=== PATIENT | male | born 1965 | race Caucasian/White ===

== ENCOUNTER 2016-05-27 07:19 | Day surgery (SDC) | payer BC ==
[2016-05-26 10:52] LABS: BUN (BLOOD UREA NITROGEN) 11 MG/DL (6-23); CALCIUM, SERUM 8.6 MG/DL (8.5-10.4); CHLORIDE, SERUM 108 MMOL/L (96-112); CO2 (CARBON DIOXIDE) 27 MMOL/L (24-34); CREATININE 0.82 MG/DL (0.70-1.30); GFR AFRICAN AMERICAN 119 ML/MIN (>=60); GFR NON AFRICAN AMERICAN 102 ML/MIN (>=60); POTASSIUM, SERUM 3.8 MMOL/L (3.5-5.3); SODIUM, SERUM 143 MMOL/L (135-148)
[2016-05-26 10:53] LABS: GLUCOSE, SERUM 157 MG/DL (60-99)
--- NOTE | ~2016-05-27 | OP ---
Record Of Operation [facility] [address] [place]. [address] NAME: GISSELL ANGELES : 63 [place] [facility] [place] [id number] AGE: 50 ADM/REG DATE : 05/27/16 MR#: [id number] REPORT SERV DATE: 05/27/16 DICTATED BY: FIDELINA REA DATE: 05/27/16 REPORT STATUS : Draft TRANSCRIBED BY: MODL DATE: 05/27/16 DATE OF PROCEDURE: 05/27/2016 PREOPERATIVE DIAGNOSES: 1. Left maxillary sinus cyst. 2. Chronic nasal obstruction. 3. Bilateral inferior turbinate hypertrophy. POSTOPERATIVE DIAGNOSES: 1. Left maxillary sinus cyst. 2. Chronic nasal obstruction. 3. Bilateral inferior turbinate hypertrophy. PROCEDURES: 1. Left endoscopic middle meatal antrostomy with cyst removal. 2. Bilateral inferior turbinoplasty. SURGEON: Fidelina Rea M.D. ANESTHESIA: General. COMPLICATIONS: None. COUNTS: All counts were correct following the procedure. ESTIMATED BLOOD LOSS: Minimal. PREOPERATIVE INFORMED CONSENT: We discussed the risks and benefits of the surgery including, but not limited to bleeding, infection, and possible ocular injury including blindness, possible recurrence of the cyst. He understands the risks and benefits of the surgery, and consent is on the chart. DESCRIPTION OF PROCEDURE: The patient was brought to the operating suite, placed on the operating room table in supine position. General endotracheal anesthesia was initiated without incident. The patient's head and neck were cleaned and prepped in the usual sterile fashion. Following this, both inferior turbinates and the left middle turbinate and uncinate processes were injected 1% lidocaine with 1:100,000 epinephrine for hemostasis. Approximately 10 mL was used. Following this, the left middle meatus and inferior aspect of the uncinate process were taken down using pediatric backbiting forceps. The remainder was removed using Xomed sinus shaver exposing a large cyst filling the maxillary sinus. The pictures were taken. Then, the cyst was filled with crystal-laden serous fluid, it was suctioned until clear. The cyst itself was removed using a Giraffe forcep and as well as straight Blakesley forceps. Specimens was sent in formalin for permanent pathology. Then the maxillary sinus was filled with a Propel mometasone stent, and attention was taken to the turbinates. Record Of Operation [facility] [address] [place]. [address] NAME: GISSELL ANGELES : 63 [place] [facility] [place] [id number] AGE: 50 ADM/REG DATE : 05/27/16 MR#: [id number] REPORT SERV DATE: 05/27/16 DICTATED BY: FIDELINA REA DATE: 05/27/16 REPORT STATUS : Draft TRANSCRIBED BY: MODL DATE: 05/27/16 The patient was brought to the operating suite and placed on the operating table in the supine position. General endotracheal anesthesia was initiated without incident. The patient's head and neck were cleaned, prepped and draped in the usual sterile fashion. Following this, both sides of the septum and inferior turbinates were injected with 1% Lidocaine with 1:100,000 epinephrine for hemostasis. Approximately 12.0 mL was used. Following this, a #15 blade scalpel was used to performed a left hemitransfixion incision down to the underlying septal cartilage. A mucoperichondrial flap was raised along the left side of the nasal septum using [place] and Gordon elevators. The bony cartilaginous junction was using the Julián elevator and then the mucoperiosteum was raised off both sides of the bony nasal septum. A thin strip of the cartilaginous septum along the maxillary crest was removed using a #15 blade scalpel and a Julián elevator, allowing the cartilaginous septum to swing back in the midline. The maxillary crest was exposed using the Clements elevator and removed using the 6.0 mm. straight osteotome. The deviated bony nasal septum was taken down using open Shirley-Damon forceps, as well as Gregory forceps. Once the septal deviation had been corrected, the left hemitransfixion incision was closed using interrupted 4-0 chromic suture. The Xomed turbinate shaver was then used to perform submucous resection of both inferior turbinates without difficulty and both inferior turbinates were infractured and both the medial and lateral surfaces were cauterized using the Harmonic scalpel. Both inferior turbinates were then outfractured. Breathe-Easy septal splints were then placed on either side of the nasal septum and sutured in the midline using 2-0 nylon suture. The nasopharynx was suctioned free of any blood clots. The patient was awakened from anesthesia and taken to the recovery room in stable condition. SURI/LINDAL Fidelina Rea M.D. / [id number] CC: Los Barnett MD
[~2016-05-27 07:19] MED LIST: AMITIZA24; CLARIT10 PO; FLONASE NAS; METHOC750B PO; NORCO1 TA2 PO; NORV10 PO; NORV5 PO; PCET PO; PRILOSEC40 MG PO; RANITIDINE300 MG PO; VOLT75 PO; XIGDUO
== END 2016-05-27 23:59 | disposition home or self-care (01) ==
LOC: MSC 07:19
PROVIDERS: Otolaryngology
PROC: 0DJ08ZZ Inspection of Upper Intestinal Tract, Via Natural or Artificial Opening Endoscopic (ICD-10-PCS; principal; 2016-05-27 09:00)
DX: J34.89 Other specified disorders of nose and nasal sinuses (principal); J34.3 Hypertrophy of nasal turbinates; L98.8 Other specified disorders of the skin and subcutaneous tissue
CPT/HCPCS: 80048; 82962; 85014; 85018; 88304; 93005; A9270-GY; J0690; J2250; J2270; J2405; J2710; J3010